=== PATIENT | male | born 1980 | race Caucasian/White ===

== ENCOUNTER → 2018-08-27 | Outpatient (CLI) | payer OTHER ==
[~2018-08-27] MED LIST: ERYT.5TO OU; OXYACE7.5T PO; RXOXYACE PO
[2018-08-27 10:04] LABS: Hematocrit 48.1 % (37.0-53.0); Hemoglobin 16.6 g/dL (13.5-17.5); Mean Corpuscular HGB 31.4 pg (26.0-34.0); Mean Corpuscular HGB Conc 34.5 g/dL (31.5-36.5); Mean Corpuscular Volume 91 fL (80-100); Mean Platelet Volume 8.8 fL (9.1-12.4); Platelet Count 183 K/mm3 (150-400); RDW Coefficient Variation 11.9 % (11.7-14.2); RDW Standard Deviation 39.3 fL (35.1-46.3); Red Blood Cell Count 5.29 M/mm3 (4.30-5.90); White Blood Cell Count 7.51 K/mm3 (4.00-11.30)
[2018-08-27 10:22] LABS: Alanine Aminotransfer (ALT/SGP 35 U/L (12-78); Albumin, Blood 3.6 g/dL (3.4-5.0); Albumin/Globulin Ratio 0.8 (0.8-1.8); Alk Phos 68 U/L (50-136); Anion Gap 10 mmol/L (6-16); Aspartate Aminotrans (AST/SGOT 27 U/L (12-37); Bilirubin, Total 0.5 mg/dL (0.1-1.0); Blood Urea Nitrogen 9 mg/dL (8-24); CO2, Blood 26 mmol/L (21-32); Calcium, Blood 9.2 mg/dL (8.5-10.1); Chloride, Blood 101 mmol/L (98-108); Creatinine, Blood 0.75 mg/dL (0.60-1.20); Globulin, Blood 4.8 g/dL (2.2-4.0); Glomerular Filtration Rate >60 (60-); Glucose, Blood 103 mg/dL (70-99); Potassium, Blood 3.9 mmol/L (3.5-5.5); Sodium, Blood 137 mmol/L (136-145); Total Protein, Blood 8.4 g/dL (6.4-8.2)
[2018-08-27 10:29] LABS: BAND PERCENT MAN 9 % (0-8); BASOPHILS ABSOLUTE MAN 0.07 K/mm3 (0.00-0.23); BASOPHILS PERCENT MAN 1 % (0-2); EOSINOPHILS PERCENT MAN 0 % (0-6); LYMPHOCYTES % ATYPICAL MANUAL 1 % (0-0); LYMPHOCYTES ABSOLUTE MAN 1.42 K/mm3 (0.84-5.20); LYMPHOCYTES PERCENT MAN 18 % (21-46); MONOCYTES ABSOLUTE MAN 1.05 K/mm3 (0.16-1.47); MONOCYTES PERCENT MAN 14 % (4-13); NEUTROPHILS ABSOLUTE MAN 4.95 K/mm3 (1.96-9.15); SEG NEUTROPHILS PERCENT MAN 57 % (41-73); TOTAL CELLS COUNTED 100
[2018-08-27 15:21] LABS: Adenovirus F 40/41 Not Detected (NOT DETECT); Astrovirus Not Detected (NOT DETECT); Campylobacter Sp Detected (NOT DETECT); Cryptosporidium Not Detected (NOT DETECT); Cyclospora Cayetanensis Not Detected (NOT DETECT); E. Coli O157 Not Detected (NOT DETECT); Entamoeba Histolytica Not Detected (NOT DETECT); Enteroaggregative E. coli-EAEC Not Detected (NOT DETECT); Enteropathogenic E. coli-EPEC Not Detected (NOT DETECT); Enterotoxigenic E. coli-ETEC Not Detected (NOT DETECT); Giardia Lamblia Not Detected (NOT DETECT); Norovirus GI/GII Not Detected (NOT DETECT); Plesiomonas Shigelloides Not Detected (NOT DETECT); Rotavirus A Not Detected (NOT DETECT); Salmonella Sp Not Detected (NOT DETECT); Sapovirus Not Detected (NOT DETECT); Shiga Toxin-prod E. coli-STEC Not Detected (NOT DETECT); Shigella/Enteroin E. coli-EIEC Not Detected (NOT DETECT); Vibrio Cholerae Not Detected (NOT DETECT); Vibrio Sp Not Detected (NOT DETECT); Yersinia Enterocolitica Not Detected (NOT DETECT)
== END | disposition home or self-care (01) ==
LOC: LAB SHORT 09:57 → LAB 09:57
DX: R10.84 Generalized abdominal pain (principal); R19.7 Diarrhea, unspecified
CPT/HCPCS: 80053; 85025; 87507